=== PATIENT | male | born 1970 | race Two or more races ===

== ENCOUNTER 2018-03-20 02:19 | Emergency (ER) | payer OTHER ==
[~2018-03-20] VITALS: Ht 185.4 cm; Wt 99.8 kg
--- NOTE | 2018-03-20 03:23 | NUR ---
CALLED PT NAME X3. NO ONE RESPONDED IN WAITING ROOM. WILL F/U
[2018-03-20 03:33] VITALS: BP 145/85
--- NOTE | 2018-03-20 04:09 | NUR ---
CALLED PT NAME X3. IN WR TO BRING TO ROOM. NO ONE IN WR. PER SECURITY PT LEFT.
== END 2018-03-20 04:10 | disposition left against medical advice (07) ==
LOC: ER 02:25
DX: Z53.21 Procedure and treatment not carried out due to patient leaving prior to being seen by health care provider (principal)
CPT/HCPCS: A4606; Z7610

== ENCOUNTER 2019-01-01 08:45 | Emergency (ER) | payer MEDICAID, OTHER ==
[~2019-01-01] VITALS: Ht 182.9 cm; Wt 98.0 kg
[2019-01-01 08:49] VITALS: BP 125/74
--- NOTE | 2019-01-01 09:03 | NUR ---
Pt discharged-After care instructions given verbalized understanding Refusing long term startes "I know where to go" Back to previous living condition. Ambulatory stable
== END 2019-01-01 09:05 | disposition home or self-care (01) ==
LOC: ER 08:48
DX: B99.8 Other infectious disease (principal); H10.89 Other conjunctivitis; Z60.2 Problems related to living alone

== ENCOUNTER → 2019-06-26 | Emergency (ER) | payer MEDICAID, OTHER ==
[~2019-06-26] VITALS: Ht 185.4 cm; Wt 104.3 kg
[~2019-06-26] MED LIST: PENICILLIN G BENZATHINE 2.4 MMU/4 ML ML IM ONE
[2019-06-26 23:17] VITALS: BP 149/89
--- NOTE | 2019-06-26 23:35 | NUR ---
PT BIB SELF WITH C/O SWELLING LOWER GUMS. PT A/OX3. ON ROOM AIR, BREATHING EVEN AND UNLABORED. IN NO ACUTE DISTRESS.
--- NOTE | 2019-06-26 23:53 | NUR ---
Patient discharged to home in stable condition. Written and verbal after care instructions given. Patient verbalizes understanding of instruction.
== END | disposition home or self-care (01) ==
LOC: ER 22:39
DX: K05.10 Chronic gingivitis, plaque induced (principal); Z60.2 Problems related to living alone
CPT/HCPCS: 96372; 99283; J0558

== ENCOUNTER 2019-11-16 03:30 | Emergency (ER) | payer MEDICAID, OTHER ==
[~2019-11-16] VITALS: Ht 185.4 cm; Wt 99.8 kg
[2019-11-16] MEDS ORDERED: CLINDAMYCIN 900 MG/6 ML VIAL ONE (04:23)
[2019-11-16] MEDS ORDERED: CLINDAMYCIN 900 MG in IV D5W 100 ML IV ONE (04:30)
--- NOTE | 2019-11-16 04:34 | NUR ---
BLOOD DRAWN AND SENT TO LAB
[2019-11-16 04:37] LABS: BASOPHILS # (AUTO) 0.1 /CMM (0.0-0.2); BASOPHILS % (AUTO) 0.9 % (0.0-2.0); EOSINOPHILS % (AUTO) 1.1 % (0.0-6.0); HEMATOCRIT 45 % (39-51); HEMOGLOBIN 15.5 g/dL (13.5-17.5); LYMPHOCYTES # (AUTO) 2.8 /CMM (0.8-4.8); LYMPHOCYTES % (AUTO) 36.2 % (20.0-44.0); MEAN CORPUSCULAR HGB CONC 35 g/dl (31.0-36.0); MEAN CORPUSCULAR VOLUME 94 fL (80-96); MONOCYTES # (AUTO) 0.7 /CMM (0.1-1.30); MONOCYTES % (AUTO) 8.9 % (2.0-12.0); NEUTROPHILS # (AUTO) 4.1 /CMM (1.8-8.9); NEUTROPHILS % (AUTO) 52.9 % (43.0-81.0); PLATELET COUNT (AUTO) 121 /CMM (150-450); RED BLOOD CELL COUNT(AUTO) 4.75 MIL/uL (4.5-6.0); WHITE BLOOD COUNT (AUTO) 7.8 K/uL (4.3-11.0)
[2019-11-16 04:45] LABS: CALCIUM, SERUM 9.4 mg/dL (8.5-10.1); POTASSIUM 3.8 mmol/L (3.5-5.1)
--- NOTE | 2019-11-16 04:45 | NUR ---
PT CAME TO ER BED 10 C/O MOUTH PAIN. PT STATES THAT HE HAS BEEN HAVING THIS PAIN FOR ABOUT 2x DAYS. PT STATES THAT HE WAS ABLE TO MOVE HIS MOLARS AROUND IN HIS MOUTH. PT HAS A HISTORY OF METH USE. SWOLLEN UPPER GUMS IN MOUTH AND TENDER TO THE TOUCH. AAOX4. NO SOB. BREATHING EVENLY AND UNLABORED ON ROOM AIR.
--- NOTE | 2019-11-16 05:19 | NUR ---
RETURNED FROM CT
[2019-11-16 06:17] VITALS: BP 152/89
--- NOTE | 2019-11-16 06:17 | NUR ---
IV removed. Catheter intact and site benign. Pressure and 4x4 applied to site. No bleeding noted. Patient discharged to home in stable condition. Written and verbal after care instructions given. Patient verbalizes understanding of instruction.
== END 2019-11-16 06:18 | disposition home or self-care (01) ==
LOC: ER 03:31
DX: K04.7 Periapical abscess without sinus (principal); F17.200 Nicotine dependence, unspecified, uncomplicated; Z60.2 Problems related to living alone
CPT/HCPCS: 36415; 70486; 80048; 85025; 96365; 99284; J3490 ×2; J7060 ×2; 70487-TC